=== PATIENT | female | born 1995 | race Caucasian/White ===

== ENCOUNTER 2017-08-29 18:34 | Emergency (ER) | payer BC ==
[~2017-08-29] VITALS: Ht 154.9 cm; Wt 57.7 kg
[2017-08-29 18:36] VITALS: TEMP 36.8; Ht 154.9 cm; Wt 57.7 kg
[2017-08-29] MEDS ORDERED: KETOROLAC TROMETHAMINE 30 MG/ML VIAL IV STA (18:56)
[2017-08-29 19:13] LABS: BASO % 0.4 %; BASO ABS # 0.03 K/uL (0-0.2); COMPLETE YES; EOS % 0.7 %; HEMATOCRIT 41.3 % (37-47); IG% 0.1 %; LYMPH % 34.6 %; LYMPH ABS # 2.83 K/uL (1.2-3.4); MEAN CELL VOLUME 79.9 fL (80-100); MEAN CORPUSCULAR HEMOGLOBIN 28.2 pg (25-34); MEAN CORPUSCULAR HGB CONC 35.4 g/dl (32-36); MEAN PLATELET VOLUME 10.2 fL (7.4-10.4); MONO % 6.1 %; NEUT % 58.1 %; PLATELET COUNT 254 K/uL (130-400); RED BLOOD COUNT 5.17 M/uL (4.2-5.4); WHITE BLOOD COUNT 8.19 K/uL (4.8-10.8)
--- NOTE | 2017-08-29 19:22 | EMERGENCY ROOM VISIT NOTE ---
History First contact with patient: 18:43 Chief Complaint: BACK PAIN Stated Complaint: BACK PAIN History of Present Illness The patient is a 22 year old female who presents to the Emergency Room with complaints of severe lower back pain that has been going on for approximately 1- 2 weeks. The patient notes that it got much worse 3 days ago. The patient does do some lifting at work. It is nothing out of the ordinary. The patient says that the pain is severe going from a sitting to standing position. She denies any numbness, tingling or weakness in her legs. No urinary or bowel incontinence. There has been no trauma to her knowledge. She denies any masses or redness in the area. She says that the pain is directly above her gluteal cleft. She did have some pain with a bowel movement earlier this week, however she noted that she was constipated. Review of Systems 10 system review performed and negative unless noted in HPI or below Past Medical/Surgical History Otherwise healthy Family History Lupus Social History Smoking Status: Never Smoker Alcohol Use: occasionally Marital Status: single Occupation Status: employed Current/Historical Medications Scheduled Cholecalciferol (Vitamin D3), Unknown Dose PO DAILY Cyanocobalamin (Vitamin B12), Unknown Dose PO DAILY Cyclobenzaprine Hcl (Flexeril), 10 MG PO TID Ferrous Gluconate (Iron), Unknown Dose PO DAILY Multiple Vitamin (Multi Vitamin), 1 TAB PO DAILY Naproxen (Naproxen), 1 TAB PO BID Scheduled PRN Hydrocodone/Acetaminophen 5MG/325MG ([place] 5MG/325MG), 1-2 TABLET PO Q4H PRN for Pain Physical Exam Vital Signs Date Time Temp Pulse Resp B/P (MAP) Pulse Ox O2 Delivery O2 Flow Rate FiO2 08/29/17 21:05 89 146/80 97 08/29/17 18:36 36.8 117 20 175/100 98 Room Air Physical Exam VITALS: Vitals are noted on the nurse's note and reviewed by myself. Vital signs stable. GENERAL: 22-year-old female, in obvious discomfort, sitting in a crouched position on the bed.well-developed well-nourished. SKIN: The skin was without rashes, erythema, edema, or bruising. No erythema, masses or edema noted in the area of the gluteal cleft. HEAD: Normocephalic atraumatic. MOUTH: Mucous membranes moist. NECK: Cervical spine is nontender. HEART: Regular rate and rhythm without murmurs gallops or rubs. LUNGS: Clear to auscultation bilaterally without wheezes, rales or rhonchi. No accessory muscle use. ABDOMEN: Positive bowel sounds x 4.Soft, nontender, without organomegaly. No guarding or rebound tenderness. MUSCULOSKELETAL: No muscle atrophy, erythema, or edema noted. No tenderness over spinous processes. Slight tenderness over the SI joint bilaterally. Negative straight leg test bilaterally. Strength 5/5 throughout. Distal pulses in the legs are intact bilaterally. NEURO: Patient was alert and oriented to person place and time. Normal sensation to touch. No focal neurological deficits. Medical Decision & Procedures ER Provider Diagnostic Interpretation: CT pelvis IMPRESSION: Normal study Electronically signed by: Gerardo Jimenez M.D. 08/29/2017 7:55 PM Dictated Date/Time: 08/29/2017 7:52 PM The status of this report is Signed. Draft = Not yet reviewed or approved by Radiologist. Signed = Reviewed and approved by Radiologist. <AttendingPhy></AttendingPhy> <FamilyPhy>Richard Fong M.D.</FamilyPhy> < PrimaryPhy>Richard Fong M.D.</PrimaryPhy> <UnitNumber>[id number]</ UnitNumber> <VisitNumber>[id number]</VisitNumber> <PatientName>AME GALLOWAY</ PatientName> <DateOfBirth>1995</DateOfBirth> <Location>[facility]</Location> < ServiceDate>08/29/17</ServiceDate> <MNE>ESINDI</MNE> <OrderingPhy>Shweta Aguero PA-C</OrderingPhy> <OrderingPhyMNE>f rep ord dr cooper</OrderingPhyMNE> < DictatingPhyMNE>f rep dict dr cooper</DictatingPhyMNE> <CCListMNE>f rep ct mne</ CCListMNE> <AdmittingPhyMNE>f pt admit dr cooper</AdmittingPhyMNE Laboratory Results 08/29/17 19:00 Red Blood Count 5.17, Mean Corpuscular Volume 79.9, Mean Corpuscular Hemoglobin 28.2, Mean Corpuscular Hemoglobin Concent 35.4, Mean Platelet Volume 10.2, Neutrophils (%) (Auto) 58.1, Lymphocytes (%) (Auto) 34.6, Monocytes (%) (Auto) 6.1, Eosinophils (%) (Auto) 0.7, Basophils (%) (Auto) 0.4, Neutrophils # (Auto) 4.76, Lymphocytes # (Auto) 2.83, Monocytes # (Auto) 0.50, Eosinophils # (Auto) 0.06, Basophils # (Auto) 0.03 08/29/17 19:00 Test 08/29/17 19:00 08/29/17 19:16 White Blood Count 8.19 K/uL (4.8-10.8) Red Blood Count 5.17 M/uL (4.2-5.4) Hemoglobin 14.6 g/dL (12.0-16.0) Hematocrit 41.3 % (37-47) Mean Corpuscular Volume 79.9 fL (80-100) Mean Corpuscular Hemoglobin 28.2 pg (25-34) Mean Corpuscular Hemoglobin Concent 35.4 g/dl (32-36) Platelet Count 254 K/uL (130-400) Mean Platelet Volume 10.2 fL (7.4-10.4) Neutrophils (%) (Auto) 58.1 % Lymphocytes (%) (Auto) 34.6 % Monocytes (%) (Auto) 6.1 % Eosinophils (%) (Auto) 0.7 % Basophils (%) (Auto) 0.4 % Neutrophils # (Auto) 4.76 K/uL (1.4-6.5) Lymphocytes # (Auto) 2.83 K/uL (1.2-3.4) Monocytes # (Auto) 0.50 K/uL (0.11-0.59) Eosinophils # (Auto) 0.06 K/uL (0-0.5) Basophils # (Auto) 0.03 K/uL (0-0.2) RDW Standard Deviation 35.2 fL (36.4-46.3) RDW Coefficient of Variation 12.2 % (11.5-14.5) Immature Granulocyte % (Auto) 0.1 % Immature Granulocyte # (Auto) 0.01 K/uL (0.00-0.02) Erythrocyte Sedimentation Rate 2 mm/hr (0-21) Anion Gap 9.0 mmol/L (3-11) Est Creatinine Clear Calc Drug Dose 84.1 ml/min Estimated GFR () 111.9 Estimated GFR (Non- 96.6 BUN/Creatinine Ratio 24.2 (10-20) Calcium Level 9.3 mg/dl (8.5-10.1) Total Bilirubin 0.3 mg/dl (0.2-1) Aspartate Amino Transf (AST/SGOT) 19 U/L (15-37) Alanine Aminotransferase (ALT/SGPT) 20 U/L (12-78) Alkaline Phosphatase 63 U/L (45-117) Total Protein 7.9 gm/dl (6.4-8.2) Albumin 4.3 gm/dl (3.4-5.0) Globulin 3.6 gm/dl (2.5-4.0) Albumin/Globulin Ratio 1.2 (0.9-2) Urine Color YELLOW Urine Appearance CLEAR (CLEAR) Urine pH 7.0 (4.5-7.5) Urine Specific [place] 1.022 (1.000-1.030) Urine Protein NEG (NEG) Urine Glucose (UA) NEG (NEG) Urine Ketones NEG (NEG) Urine Occult Blood NEG (NEG) Urine Nitrite NEG (NEG) Urine Bilirubin NEG (NEG) Urine Urobilinogen NEG (NEG) Urine Leukocyte Esterase NEG (NEG) Urine Test NEG (NEG) Medications Administered Medications (Trade) Dose Ordered Sig/Cruz Route Start Time Stop Time Status Last Admin Dose Admin Ketorolac Tromethamine (Toradol Inj) 30 mg NOW STAT IV 08/29/17 18:56 08/29/17 18:59 DC 08/29/17 18:56 30 MG Morphine Sulfate (MoRPHine SULFATE INJ) 4 mg ONE STAT IV 08/29/17 20:20 08/29/17 20:21 DC 08/29/17 20:28 4 MG Ondansetron HCl (Zofran Odt) 4 mg NOW STAT PO 08/29/17 20:20 08/29/17 20:21 DC 08/29/17 20:28 4 MG ED Course Patient was seen and examined Vital signs including blood pressure were reviewed medications list was verified with patient Labs were obtained, and a saline lock was established The patient was also seen and examined by myself supervising physician The patient was given Toradol 30 mg IV for pain Upon reevaluation, the patient's pain was slightly better. She was requesting more pain medication. She was ordered morphine 4 mg IV and Zofran 4 mg ODT Imaging was performed and reviewed. The patient was reassessed him more comfortable. The patient was also seen and examined by myself supervising physician and is in agreement with my plan I reviewed discharge instructions the patient. They voiced understanding and had no further questions. Medical Decision Differential diagnosis: Spine fracture, ligamentous injury, subluxation, spondylolisthesis, spondylosis, herniated disc, contusion, muscle spasm, pilonidal cyst, perirectal abscess, sacroiliitis, cauda equina syndrome, spinal abscess This patient is a 22-year-old female that presents emergency department with severe lower back pain for the last 3 days. The pain is worse with movement. On exam, she was in significant discomfort. She did have mild tenderness over the SI joint bilaterally. She also noted mild discomfort with a bowel movement earlier this week. The patient is afebrile. Lab work was performed. Her sedimentation rate is within normal limits. There is no leukocytosis. I ordered a CT of the pelvis with IV contrast to rule out any abscess or infection. This was negative. The patient had fairly good pain relief in the emergency department. It is possible that she has some inflammation in her SI joint bilaterally. She did not have any signs of cauda equina syndrome such as numbness tingling, weakness or incontinence. I also do not expect an epidural abscess. I do not find designated imaging of the spine necessary. She was treated with anti-inflammatories and narcotics. She was also given prescriptions for naproxen, Flexeril and [place] to go. She was instructed to follow-up with her primary care physician in 48 hours. She and her mother are comfortable with this plan. She agrees to return to the emergency department immediately with any worsening symptoms This chart was completed in part utilizing [employer] Voice Recognition software. Attempts were made to minimize the grammatical errors, random word insertions, pronoun errors and incomplete sentences. Any formal questions or concerns about the content, text or information contained within the body of this dictation should be directly addressed to the provider for clarification. Blood Pressure Screening Patient's blood pressure: Elevated blood pressure (improved during stay) Blood pressure disposition: Elevated BP felt to be situational Impression Primary Impression: Lower back pain Departure Information Dispostion Home / Self-Care Condition FAIR Prescriptions Cyclobenzaprine Hcl (FLEXERIL) 10 Mg Tab 10 MG PO TID for Muscle Spasms, #20 TAB Prov: Shweta Aguero PA-C 08/29/17 Hydrocodone/Acetaminophen 5MG/325MG ([place] 5MG/325MG) Tab 1-2 TABLET PO Q4H Y for Pain, #15 TAB For Initial Treatment Prov: Shweta Aguero PA-C 08/29/17 Naproxen (NAPROXEN) 375 Mg Tab 1 TAB PO BID for 30 Days, #28 TAB Prov: Shweta Aguero PA-C 08/29/17 Referrals Abelardo Tyson D.OMax (PCP) Patient Instructions My [facility] Additional Instructions You were evaluated today for back pain. There were no significant abnormalities found on a CAT scan or blood work. This could be musculoskeletal pain. Naproxen 1 tablet twice daily for the next 3 days. Then take on an as-needed basis. Please take this medication with food. [place]mont Take 1-2 pills every four hours for pain. Avoid alcohol, operating machinery or dangerous equipment, working on ladders or roofs, DRIVING, or situations where being under the influence may be dangerous. It is recommended to use an [id number] stool softener such as Colace, 100mg twice daily while taking this medication to avoid constipation. Flexeril every 8 hours as needed for muscle spasms. Please do not drink alcohol or drive or taking this medication. Ice over the lower back over the next 48 hours. No strenuous activity until your back is feeling better Please call Thursday morning for a follow-up appointment with a primary care physician. If you run into difficulty, please call the emergency department at [phone]. Ask for transfer to the ER. A case coordinator may help you make the appointment. Return to the emergency department if you have any of the following symptoms: -Problems with urination -Weakness in your legs -Chest pain -Shortness of breath -Worsening pain -Fever -Severe pain with bowel movements
[2017-08-29 19:26] LABS: URINE APPEARANCE CLEAR (CLEAR); URINE BILIRUBIN NEG (NEG); URINE COLOR YELLOW; URINE NITRITE NEG (NEG); URINE SPECIFIC GRAVITY 1.022 (1.000-1.030); UROBILINOGEN NEG (NEG)
[2017-08-29 19:27] LABS: MANUAL MICROSCOPIC REQUIRED? NO; REVIEW REQ? NO
[2017-08-29] MEDS ORDERED: OPTIRAY 320 IV PRN (19:30)
[2017-08-29 19:32] LABS: BUN/CREATININE RATIO 24.2 (10-20); CALCIUM 9.3 mg/dl (8.5-10.1); CREATININE 0.85 mg/dl (0.60-1.20); POTASSIUM 3.9 mmol/L (3.5-5.1)
[2017-08-29 19:35] LABS: ALB/GLOB RATIO 1.2 (0.9-2)
[2017-08-29] MEDS ORDERED: MULT-1027 PO (19:39)
[2017-08-29] MEDS ORDERED: FERR27TA5 PO (19:39)
[2017-08-29] MEDS ORDERED: CHOL1000 PO (19:40)
[2017-08-29] MEDS ORDERED: CYAN100020 PO (19:41)
--- NOTE | 2017-08-29 19:56 | DIAGNOSTIC IMAGING REPORT ---
CT PELVIS W/IV CONT ONLY (CT) CT DOSE: 353.87 mGy.cm CLINICAL HISTORY: Posterior pelvic and tailbone pain. TECHNIQUE: The patient was scanned following administration 120 cc of Optiray 320. A dose lowering technique was utilized adhering to the principles of ALARA. COMPARISON STUDY: None. FINDINGS: The appendix appears normal. There is no pathologic bowel dilatation. There is no evidence of acute diverticulitis. There is no evidence of pathologic adenopathy. There is no evidence of free intraperitoneal air. There are no abnormal adnexal masses. There is a joint tampon. No destructive skeletal lesions are visualized. IMPRESSION: Normal study Electronically signed by: Gerardo Jimenez M.D. 08/29/2017 7:55 PM Dictated Date/Time: 08/29/2017 7:52 PM
[2017-08-29] MEDS ORDERED: ONDANSETRON 4MG OD TAB PO STA (20:20)
[2017-08-29] MEDS ORDERED: MoRPHine SULFATE 4 MG/ML 1 ML CARP\\VIAL IV STA (20:20)
[2017-08-29] MEDS ORDERED: NAPR-1221 PO (20:45)
[2017-08-29] MEDS ORDERED: CYCL10TA6 PO (20:45)
[2017-08-29] MEDS ORDERED: HYDR-5688 PO (20:45)
[2017-08-29 21:05] VITALS: BP 146/80; PULSE 89; O2SAT 97
== END 2017-08-29 21:06 | disposition home or self-care (01) ==
LOC: C.EDB 18:35 → C.EDD 21:06
DX: M54.5 Low back pain (principal); Z82.69 Family history of other diseases of the musculoskeletal system and connective tissue